=== PATIENT | female | born 1985 | race Caucasian/White ===

== ENCOUNTER 2023-11-04 16:15 | Emergency (ER) | payer BC, SELFPAY ==
[2023-11-04 16:26] VITALS: BP 136/94
[2023-11-04 16:51] LABS: % Basophils 0.3 % (0-2); % Eosinophils 1.3 % (0-6); % Immature Granulocytes 0.3 % (0-0.5); % Lymphocytes 25.7 % (20.5-51.1); % Monocytes 6.8 % (1.7-9.3); % Neutrophils 65.6 % (42.2-75.2); Absolute Eosinophils 0.2 10^3/uL (0-0.7); Absolute Lymphocytes 3.1 10^3/uL (1.2-3.4); Absolute Monocytes 0.8 10^3/uL (0.1-0.6); Absolute Neutrophils 7.9 10^3/uL (1.4-6.5); Hemoglobin 12.9 g/dL (12.0-16.0); Mean Corp Hgb Conc. 33.9 g/dL (33.0-37.0); Mean Corpuscular Hgb 28.9 pg (27.0-31.0); Mean Corpuscular Volume 85.2 fL (81.0-99.0); Mean Platelet Volume 10.4 fL (7.4-10.4); Nucleated Red Blood Cells % 0 %; Platelet Count 319 10^3/uL (130-400); Red Blood Cell Count 4.46 10^6/uL (4.20-5.40)
[2023-11-04 17:08] LABS: ALT (SGPT) 16 U/L (0-35); AST (SGOT) 22 U/L (14-36); Albumin 4.7 g/dl (3.5-5.0); Alkaline Phosphatase 53 U/L (38-126); Blood Urea Nitrogen 16 mg/dl (7-17); Calcium 10.7 mg/dl (8.4-10.2); Carbon Dioxide 24 mmol/L (22-30); Chloride 105 mmol/L (98-107); Glucose 99 mg/dl (70-99); Potassium 4.2 mmol/L (3.5-5.1); Sodium 140 mmol/L (135-145); Total Bilirubin 0.4 mg/dl (0.2-1.3); Total Protein 7.9 g/dl (6.3-8.2); eGFR > 60.00
[2023-11-04 18:12] VITALS: BMI 32.5
[2023-11-04 18:15] VITALS: BP 136/87
--- NOTE | 2023-11-04 18:37 | ED.GENMED ---
History of Present Illness
General
Chief Complaint: Dizziness
Time Seen by Provider: 11/04/23 18:19
Travel History
Have you had any contact with someone who has COVID-19?: No
Do you have any symptoms of coronavirus? Fever > 100 degrees, chills, cough, shortness of breath, sore throat, loss of taste or smell, muscle aches, or headache?: No
History of Present Illness
History of Present Illness:
38-year-old female no past medical history presenting with pounding headache with associated nausea, feeling off balance, and left arm/leg numbness. Patient denies fever, chills, neck pain, vomiting, focal weakness, or slurred speech. Patient
denies history of previous migraines. LMP 3 days ago. Patient reports dizziness when she stands up, none while sitting. Patient states she took meclizine at home with some improvement in dizziness.
Phy Exam
Physical Exam
Physical Exam:
General: Alert, no acute distress, well appearing
Head: NCAT
Eyes: clear conjunctiva, PERRLA, EOMI, no nystagmus
Neck: supple, full range of motion
Cardiac: regular rate and rhythm, no murmur
Lungs: clear to auscultation bilaterally. No wheezes, rales, or rhonchi. Speaking full unlabored sentences. No respiratory distress.
Abdomen: soft, nondistended nontender. No rebound or guarding.
MSK: no lower extremity edema bilaterally. No deformity
Skin: warm, dry
Neuro: Alert and oriented x3. Cranial nerves II through XII grossly intact no focal deficits. No pronator drift. 5 out of 5 strength bilateral upper lower extremities. Sensation intact throughout bilateral upper and lower extremities. Normal
finger-nose.
Course
Orders/Labs/Results
Orders:
Orders
11/04/23 16:29
Electrocardiogram (*1) Urgent
Reason for Study: Vertigo / Dizzy
EKG- Treatment ONCE
11/04/23 16:42
Complete Blood Count/With Diff Urgent
Comprehensive Metabolic Panel Urgent
HCG, Serum Qualitative Screen Urgent
Comment: ADD ON
11/04/23 18:21
0.9% Sodium Chloride 500 ml [Nss] 500 ml IV BOLUS
Ondansetron Injectable [Zofran] 4 mg IV NOW STA
Test Result ONCE
11/04/23 18:29
Add On- LAB Urgent
Tests Added?: hcg qual
11/04/23 18:57
CT Head W/o Iv Contrast Urgent
Comment:
Reason For Exam: headache, left arm/leg numbness
11/04/23 19:18
Ondansetron HCl [Zofran] 4 mg PO NOW STA
Ondansetron Orally Disint [Zofran Odt (Orally Disintegrating)] 4 mg .ROUTE .STK-MED ONE
Abnormal Lab Results
11/04/23
16:42
WBC 12.0 H 10^3/uL
(4.8-10.8)
Absolute Neuts (auto) 7.9 H 10^3/uL
(1.4-6.5)
Absolute Monos (auto) 0.8 H 10^3/uL
(0.1-0.6)
Calcium 10.7 H mg/dl
(8.4-10.2)
11/04/23 16:42
11/04/23 16:42
Vital Signs
Initial and Last Documented VS:
Initial Vital Signs
Temp Pulse Resp BP Pulse Ox
98.0 F 89 16 136/94 98
11/04/23 16:26 11/04/23 16:26 11/04/23 16:26 11/04/23 16:26 11/04/23 16:26
Last Documented Vital Signs
Temp Pulse Resp BP Pulse Ox
98.0 F 89 17 136/87 99
11/04/23 16:26 11/04/23 18:15 11/04/23 18:15 11/04/23 18:15 11/04/23 18:15
MDM/Problems Addressed
MDM/Problems Addressed:
Patient presents to the Emergency Department with headache, feeling unsteady, nausea, left arm/leg numbness
Number and Complexity of Problems Addressed at the Encounter
� Chronic conditions affecting care:
� Acute Exacerbation and/or Progression of Chronic Illness:
� Differential Diagnosis includes: Complex migraine, , electrolyte abnormality, vertigo, anemia
Amount and/or Complexity of Data to be Reviewed and Analyzed
� I performed an independent evaluation of and my interpretation is:
EKG:
CT: CT head shows no acute hemorrhage
Xrays:
Laboratory Studies: no anemia, electrolytes within normal limits, urine negative.
Other:
� Review of other/old records reveals:
� Clinical information was obtained by an independent historian:
� Prescriptions/Medications Considered but not given:
� Further testing considered but not performed:
Risk of Complications and/or Morbidity or Mortality of Patient Management
� Social Determinants of health affecting care:
� Discussion with other providers (PCP, Hospitalists, Consultants, etc):
� Escalation of care including admission/observation vs risk of discharge considered: 38yoF presenting with pounding headache, dizziness upon standing, nausea, and left arm/leg numbness for the past 1 week. Patient denies weakness, slurred speech,
visual changes, vomiting, abdominal pain, or urinary symptoms. Neurologically intact. Labs and CT head unremarkable. Offered to give fluids, patient declined IV. Gave zofran with resolution of nausea. Discussed results with patient at bedside.
Neurologically intact, vitals stable, steady gait. Discharge home with PCP follow up.
*Critical Care Note
Total Time (30-74mins, 75-104mins- exclusive of procedures): Not Applicable
ED Attending Note
-
Portions of this chart may have been created with voice recognition software.� Occasional wrong word or��sound alike� substitutions may have occurred due to the inherent limitations of voice recognition software.
Discharge Plan
Departure
Patient Disposition: Home (Routine Discharge)
Date of Disposition: 11/04/23
Time of Disposition: 21:21
Patient with high blood pressure during this ER visit?: Yes
Discharge Problem:
Headache
Instructions: Migraine in adults, BLOOD PRESSURE
Prescriptions:
New
ondansetron 4 mg tablet,disintegrating
4 mg PO Q8H PRN (Reason: nausea and vomiting) 5 Days Qty: 15 0RF
Referrals:
NONE,* [Family Provider] -
Activity Restrictions/Additional Instructions:
Take tylenol 975mg every 6 hours and/or Ibuprofen 800mg every 8 hours with food as needed for pain
Take zofran as needed for nausea
Take meclizine as needed for dizziness
Drink plenty of electrolyte containing solutions like Pedialyte/Gatorade to stay hydrated
Follow up with primary care doctor in 1-2 days
Return to the emergency department for weakness, slurred speech, or new/worsening symptoms
Interventions
Interventions:
*Risk Screen - Suicide Last Done: 11/04/23 18:11
*General Assessment Last Done: 11/04/23 18:11
*Neglect/Abuse Screening Last Done: 11/04/23 18:11
ED- Fall Risk Assessment Last Done: 11/04/23 18:11
*ED COVID-19 Vaccine History Last Done: 11/04/23 16:26
ED- Neurological Assessment Last Done: 11/04/23 18:11
ED- Cardiac Assessment Last Done: 11/04/23 18:12
ED Swallowing Screen Last Done: 11/04/23 18:15
Discharge Date and Time
Print Language: INDONESIAN
[2023-11-04 18:51] LABS: HCG, Serum Qualitative Screen Negative
[2023-11-04] MEDS: ZOFRAN 4 MG PO (19:21)
== END 2023-11-04 21:36 | disposition home or self-care (01) ==
LOC: EMR 16:15
PROVIDERS: EMERGENCY PHYSICIAN Emergency Medicine
DX: R51.9 Headache, unspecified (principal); R42 Dizziness and giddiness; R11.0 Nausea; R20.0 Anesthesia of skin
CPT/HCPCS: 99284; 70450; 80053; 84703; 85025